=== PATIENT | female | born 1990 | race Caucasian/White ===

== ENCOUNTER 2019-06-23 15:45 | Outpatient (CLI) | payer SELFPAY, MEDICAID ==
[2019-06-23 16:46] LABS: RUPTURE FETAL MEMBRANES NEGATIVE (NEGATIVE)
== END 2019-06-23 18:20 | disposition home or self-care (01) ==
LOC: OBT 15:45 → L-D 15:47 → OBT 18:20
DX: O26.893 Other specified pregnancy related conditions, third trimester (principal); N89.8 Other specified noninflammatory disorders of vagina; Z3A.37 37 weeks gestation of pregnancy
CPT/HCPCS: 76818; 84112

== ENCOUNTER 2019-06-28 17:49 | Outpatient (CLI) | payer SELFPAY | END 2019-06-28 19:43 | disposition home or self-care (01) | LOC: OBT 17:49 → L-D 17:50 → OBT 19:43 | DX: O47.1 False labor at or after 37 completed weeks of gestation (principal); Z3A.37 37 weeks gestation of pregnancy | CPT/HCPCS: 76818 ==